=== PATIENT | female | born 1930 | race Caucasian/White ===

== ENCOUNTER → 2017-05-29 | Outpatient (CLI) | payer MEDICARE, OTHER ==
--- NOTE | 2017-05-29 13:31 | RAD ---
Indication screening for osteoporosis. The lumbar spine and right hip were evaluated. No prior bone density analysis is available. In the lumbar spine the average bone mineral density is approximately 1.23 g/cc. The average T score is 0.4 which is normal. There is, however, more focal demineralization of L4 relative to the other vertebral bodies. The T score at this level is -1.4. In the hips the average bone mineral density is 0.82 g/cc. T score of -1.6 is indicative of osteopenia. IMPRESSION: Osteopenic right hip. The overall bone density in the lumbar spine is normal although L4 is likely somewhat osteopenic
--- NOTE | 2017-05-29 15:02 | RAD ---
DATE: 05/29/17 EXAM: DIGITAL SCREEN BILAT W/CAD HISTORY: Routine screening COMPARISON: 01/21/16 This study was interpreted with the benefit of Computerized Aided Detection (CAD). TECHNIQUE: CC and MLO views of both breasts are obtained FINDINGS: Breast Density: SCATTERED The breast parenchyma shows scattered fibroglandular densities. Breast parenchyma level B. . No suspicious clustered microcalcifications, focal asymmetric densities or masses are seen. There are stable scattered benign calcifications in both breasts. Skin and nipples are intact. IMPRESSION: Benign findings BI-RADS CATEGORY: 2 BENIGN FINDING(S) RECOMMENDED FOLLOW-UP: 12M 12 MONTH FOLLOW-UP PQRS compliance statement: Patient information was entered into a reminder system with a target due date for the next mammogram. Mammography is a sensitive method for finding small breast cancers, but it does not detect them all and is not a substitute for careful clinical examination. A negative mammogram does not negate a clinically suspicious finding and should not result in delay in biopsying a clinically suspicious abnormality. "Our facility is accredited by the [employer] Mammography Program."
== END | disposition home or self-care (01) ==
LOC: DXRAD 10:50
PROVIDERS: ATTEND Family Medicine
DX: Z12.31 Encounter for screening mammogram for malignant neoplasm of breast (principal); M85.88 Other specified disorders of bone density and structure, other site
CPT/HCPCS: 77080; G0202; 77067